=== PATIENT | male | born 1985 | race Hispanic/Latino ===

== ENCOUNTER 2021-10-13 08:53 | Outpatient (CLI) | payer BC | END 2021-10-13 08:54 | disposition home or self-care (01) | LOC: CSHWCC 08:53 | PROVIDERS: ATTEND Nurse Practitioner Family | DX: S81.802D Unspecified open wound, left lower leg, subsequent encounter (principal); R60.0 Localized edema | CPT/HCPCS: 11042; 87070; 87077; 87186; 87205; 99203; G0463 ==

== ENCOUNTER 2021-10-23 14:28 | Outpatient (CLI) | payer BC | END 2021-10-23 14:29 | disposition home or self-care (01) | LOC: CSHWCC 14:28 | PROVIDERS: ATTEND Nurse Practitioner Family | DX: S81.802D Unspecified open wound, left lower leg, subsequent encounter (principal); R60.0 Localized edema | CPT/HCPCS: 29581 ==

== ENCOUNTER 2021-10-27 14:19 | Outpatient (CLI) | payer BC | END 2021-10-27 14:20 | disposition home or self-care (01) | LOC: CSHWCC 14:19 | PROVIDERS: ATTEND Nurse Practitioner Family | DX: S81.802D Unspecified open wound, left lower leg, subsequent encounter (principal); R60.0 Localized edema | CPT/HCPCS: 29581 ==

== ENCOUNTER 2021-10-30 15:47 | Outpatient (CLI) | payer BC | END 2021-10-30 15:48 | disposition home or self-care (01) | LOC: CSHWCC 15:47 | PROVIDERS: ATTEND Nurse Practitioner Family | DX: S81.802D Unspecified open wound, left lower leg, subsequent encounter (principal); R60.0 Localized edema | CPT/HCPCS: 29581 ==

== ENCOUNTER 2021-11-03 15:00 | Outpatient (CLI) | payer BC | END 2021-11-03 15:01 | disposition home or self-care (01) | LOC: CSHWCC 15:00 | PROVIDERS: ATTEND Nurse Practitioner Family | DX: S81.802D Unspecified open wound, left lower leg, subsequent encounter (principal); R60.0 Localized edema | CPT/HCPCS: 29581 ==

== ENCOUNTER 2021-11-10 14:41 | Outpatient (CLI) | payer BC | END 2021-11-10 14:42 | disposition home or self-care (01) | LOC: CSHWCC 14:41 | PROVIDERS: ATTEND Nurse Practitioner Family | DX: S81.802D Unspecified open wound, left lower leg, subsequent encounter (principal); R60.0 Localized edema | CPT/HCPCS: 29581 ==

== ENCOUNTER 2021-11-13 15:10 | Outpatient (CLI) | payer BC | END 2021-11-13 15:11 | disposition home or self-care (01) | LOC: CSHWCC 15:10 | PROVIDERS: ATTEND Nurse Practitioner Family | DX: S81.802D Unspecified open wound, left lower leg, subsequent encounter (principal); R60.0 Localized edema ==

== ENCOUNTER 2021-11-17 15:07 | Outpatient (CLI) | payer BC | END 2021-11-17 15:08 | disposition home or self-care (01) | LOC: CSHWCC 15:07 | PROVIDERS: ATTEND Nurse Practitioner Family | DX: S81.802D Unspecified open wound, left lower leg, subsequent encounter (principal); R60.0 Localized edema | CPT/HCPCS: 29581; 99213; G0463 ==

== ENCOUNTER 2021-11-18 13:35 | Outpatient (CLI) | payer BC | END 2021-11-18 13:36 | disposition home or self-care (01) | LOC: CSHWCC 13:35 | PROVIDERS: ATTEND Nurse Practitioner Family | DX: S81.802D Unspecified open wound, left lower leg, subsequent encounter (principal); R60.0 Localized edema; L08.89 Other specified local infections of the skin and subcutaneous tissue; B96.89 Other specified bacterial agents as the cause of diseases classified elsewhere ==

== ENCOUNTER → 2021-11-21 | Outpatient (CLI) | payer BC | LOC: CSHWCC 08:00 | PROVIDERS: ATTEND Nurse Practitioner Family | DX: S81.802D Unspecified open wound, left lower leg, subsequent encounter (principal); R60.0 Localized edema; L08.89 Other specified local infections of the skin and subcutaneous tissue; B96.89 Other specified bacterial agents as the cause of diseases classified elsewhere ==

== ENCOUNTER 2021-11-24 14:47 | Outpatient (CLI) | payer BC | END 2021-11-24 14:48 | disposition home or self-care (01) | LOC: CSHWCC 14:47 | PROVIDERS: ATTEND Nurse Practitioner Family | DX: S81.802D Unspecified open wound, left lower leg, subsequent encounter (principal); R60.0 Localized edema | CPT/HCPCS: 11042 ==

== ENCOUNTER 2021-12-03 14:48 | Outpatient (CLI) | payer BC | END 2021-12-03 14:49 | disposition home or self-care (01) | LOC: CSHWCC 14:48 | PROVIDERS: ATTEND Nurse Practitioner Family | DX: S81.802D Unspecified open wound, left lower leg, subsequent encounter (principal); R60.0 Localized edema | CPT/HCPCS: 11042; 87070; 87205; 99213; G0463 ==

== ENCOUNTER 2021-12-11 15:10 | Outpatient (CLI) | payer BC | END 2021-12-11 15:11 | disposition home or self-care (01) | LOC: CSHWCC 15:10 | PROVIDERS: ATTEND Nurse Practitioner Family | DX: S81.802D Unspecified open wound, left lower leg, subsequent encounter (principal); R60.0 Localized edema | CPT/HCPCS: 99213; G0463 ==

== ENCOUNTER 2022-02-05 14:54 | Outpatient (CLI) | payer BC | END 2022-02-05 14:55 | disposition home or self-care (01) | LOC: CSHWCC 14:54 | PROVIDERS: ATTEND Nurse Practitioner Family | DX: S81.802D Unspecified open wound, left lower leg, subsequent encounter (principal); R60.0 Localized edema | CPT/HCPCS: 29581; 87070; 87077; 87186; 87205 ==

== ENCOUNTER 2022-02-09 14:09 | Outpatient (CLI) | payer BC | END 2022-02-09 14:10 | disposition home or self-care (01) | LOC: CSHWCC 14:09 | PROVIDERS: ATTEND Nurse Practitioner Family | DX: S81.802D Unspecified open wound, left lower leg, subsequent encounter (principal); R60.0 Localized edema | CPT/HCPCS: 11042; 11045; 99212; G0463 ==

== ENCOUNTER 2022-02-12 10:26 | Outpatient (CLI) | payer BC | END 2022-02-12 10:27 | disposition home or self-care (01) | LOC: CSHWCC 10:26 | PROVIDERS: ATTEND Nurse Practitioner Family | DX: S81.802D Unspecified open wound, left lower leg, subsequent encounter (principal); R60.0 Localized edema ==

== ENCOUNTER 2022-02-19 10:35 | Outpatient (CLI) | payer BC | END 2022-02-19 10:36 | disposition home or self-care (01) | LOC: CSHWCC 10:35 | PROVIDERS: ATTEND Nurse Practitioner Family | DX: S81.801D Unspecified open wound, right lower leg, subsequent encounter (principal); R60.0 Localized edema ==

== ENCOUNTER 2022-02-23 14:43 | Outpatient (CLI) | payer BC | END 2022-02-23 14:44 | disposition home or self-care (01) | LOC: CSHWCC 14:43 | PROVIDERS: ATTEND Nurse Practitioner Family | DX: S81.802D Unspecified open wound, left lower leg, subsequent encounter (principal); R60.0 Localized edema | CPT/HCPCS: 29581 ==

== ENCOUNTER 2022-02-26 13:43 | Outpatient (CLI) | payer BC | END 2022-02-26 13:44 | disposition home or self-care (01) | LOC: CSHWCC 13:43 | PROVIDERS: ATTEND Preventive Medicine Undersea and Hyperbaric Medicine | DX: S81.802D Unspecified open wound, left lower leg, subsequent encounter (principal); R60.0 Localized edema | CPT/HCPCS: 11042 ==

== ENCOUNTER 2022-03-03 11:25 | Outpatient (CLI) | payer BC | END 2022-03-03 11:26 | disposition home or self-care (01) | LOC: CSHWCC 11:25 | PROVIDERS: ATTEND Preventive Medicine Undersea and Hyperbaric Medicine | DX: S81.802D Unspecified open wound, left lower leg, subsequent encounter (principal); R60.0 Localized edema | CPT/HCPCS: 29581 ==

== ENCOUNTER 2022-03-06 10:32 | Outpatient (CLI) | payer BC | END 2022-03-06 10:33 | disposition home or self-care (01) | LOC: CSHWCC 10:32 | PROVIDERS: ATTEND Preventive Medicine Undersea and Hyperbaric Medicine | DX: S81.802D Unspecified open wound, left lower leg, subsequent encounter (principal); R60.0 Localized edema | CPT/HCPCS: 29581 ==

== ENCOUNTER 2022-03-10 08:07 | Outpatient (CLI) | payer BC | END 2022-03-10 08:08 | disposition home or self-care (01) | LOC: CSHWCC 08:07 | PROVIDERS: ATTEND Preventive Medicine Undersea and Hyperbaric Medicine | DX: S81.802D Unspecified open wound, left lower leg, subsequent encounter (principal); R60.0 Localized edema | CPT/HCPCS: 99213; G0463 ==

== ENCOUNTER 2022-03-16 09:36 | Outpatient (CLI) | payer BC | END 2022-03-16 09:37 | disposition home or self-care (01) | LOC: CSHWCC 09:36 | PROVIDERS: ATTEND Nurse Practitioner Family | DX: S81.802D Unspecified open wound, left lower leg, subsequent encounter (principal); R60.0 Localized edema | CPT/HCPCS: 29581 ==

== ENCOUNTER 2022-03-19 14:01 | Outpatient (CLI) | payer BC | END 2022-03-19 14:02 | disposition home or self-care (01) | LOC: CSHWCC 14:01 | PROVIDERS: ATTEND Preventive Medicine Undersea and Hyperbaric Medicine | DX: S81.802D Unspecified open wound, left lower leg, subsequent encounter (principal); R60.0 Localized edema ==

== ENCOUNTER 2022-03-27 08:08 | Outpatient (CLI) | payer BC | END 2022-03-27 08:09 | disposition home or self-care (01) | LOC: CSHWCC 08:08 | PROVIDERS: ATTEND Preventive Medicine Undersea and Hyperbaric Medicine | DX: S81.802D Unspecified open wound, left lower leg, subsequent encounter (principal); R60.0 Localized edema | CPT/HCPCS: 29581 ==

== ENCOUNTER 2022-03-31 09:00 | Outpatient (CLI) | payer BC | END 2022-03-31 09:01 | disposition home or self-care (01) | LOC: CSHWCC 09:00 | PROVIDERS: ATTEND Preventive Medicine Undersea and Hyperbaric Medicine | DX: S81.802D Unspecified open wound, left lower leg, subsequent encounter (principal); R60.0 Localized edema | CPT/HCPCS: 29581; 99213; G0463 ==

== ENCOUNTER 2022-04-03 10:12 | Outpatient (CLI) | payer BC | END 2022-04-03 10:13 | disposition home or self-care (01) | LOC: CSHWCC 10:12 | PROVIDERS: ATTEND Preventive Medicine Undersea and Hyperbaric Medicine | DX: S81.802D Unspecified open wound, left lower leg, subsequent encounter (principal); R60.0 Localized edema | CPT/HCPCS: 29581 ==

== ENCOUNTER 2022-04-15 11:03 | Outpatient (CLI) | payer BC | END 2022-04-15 11:04 | disposition home or self-care (01) | LOC: CSHWCC 11:03 | PROVIDERS: ATTEND Preventive Medicine Undersea and Hyperbaric Medicine | DX: S81.802D Unspecified open wound, left lower leg, subsequent encounter (principal); R60.0 Localized edema ==

== ENCOUNTER 2022-04-22 09:06 | Outpatient (CLI) | payer BC | END 2022-04-22 09:07 | disposition home or self-care (01) | LOC: CSHWCC 09:06 | PROVIDERS: ATTEND Preventive Medicine Undersea and Hyperbaric Medicine | DX: S81.802D Unspecified open wound, left lower leg, subsequent encounter (principal); R60.0 Localized edema ==

== ENCOUNTER 2022-04-30 08:46 | Outpatient (CLI) | payer BC | END 2022-04-30 08:47 | disposition home or self-care (01) | LOC: CSHWCC 08:46 | PROVIDERS: ATTEND Nurse Practitioner Family | DX: S81.802D Unspecified open wound, left lower leg, subsequent encounter (principal); R60.0 Localized edema ==

== ENCOUNTER 2022-05-18 08:03 | Outpatient (CLI) | payer BC | END 2022-05-18 08:04 | disposition home or self-care (01) | LOC: CSHWCC 08:03 | PROVIDERS: ATTEND Nurse Practitioner Family | DX: S81.802D Unspecified open wound, left lower leg, subsequent encounter (principal); R60.0 Localized edema | CPT/HCPCS: 29581; 97607 ==

== ENCOUNTER 2022-06-10 13:26 | Outpatient (CLI) | payer BC ==
[2022-06-10 20:16] VITALS: BP 126/81
== END 2022-06-10 13:27 | disposition home or self-care (01) ==
LOC: CSHWCC 13:26
PROVIDERS: ATTEND Nurse Practitioner Family
DX: S81.802D Unspecified open wound, left lower leg, subsequent encounter (principal); R60.0 Localized edema
CPT/HCPCS: 87070; 87205

== ENCOUNTER 2022-06-25 15:15 | Outpatient (CLI) | payer BC | END 2022-06-25 15:16 | disposition home or self-care (01) | LOC: CSHWCC 15:15 | PROVIDERS: ATTEND Nurse Practitioner Family | DX: S81.802D Unspecified open wound, left lower leg, subsequent encounter (principal); R60.0 Localized edema ==

== ENCOUNTER 2022-07-03 09:13 | Outpatient (CLI) | payer BC | END 2022-07-03 09:14 | disposition home or self-care (01) | LOC: CSHWCC 09:13 | PROVIDERS: ATTEND Nurse Practitioner Family | DX: S81.802D Unspecified open wound, left lower leg, subsequent encounter (principal); R60.0 Localized edema | CPT/HCPCS: 11042; 11045; 29581; 99212; G0463 ==

== ENCOUNTER 2022-07-15 13:35 | Outpatient (CLI) | payer BC | END 2022-07-15 13:36 | disposition home or self-care (01) | LOC: CSHWCC 13:35 | PROVIDERS: ATTEND Nurse Practitioner Family | DX: S81.802D Unspecified open wound, left lower leg, subsequent encounter (principal); R60.0 Localized edema | CPT/HCPCS: 29581 ==

== ENCOUNTER 2022-07-24 09:54 | Outpatient (CLI) | payer BC | END 2022-07-24 09:55 | disposition home or self-care (01) | LOC: CSHWCC 09:54 | PROVIDERS: ATTEND Nurse Practitioner Family | DX: S81.802D Unspecified open wound, left lower leg, subsequent encounter (principal); R60.0 Localized edema | CPT/HCPCS: 11042; 11045 ==

== ENCOUNTER 2022-07-31 09:39 | Outpatient (CLI) | payer BC | END 2022-07-31 09:40 | disposition home or self-care (01) | LOC: CSHWCC 09:39 | PROVIDERS: ATTEND Nurse Practitioner Family | DX: S81.802D Unspecified open wound, left lower leg, subsequent encounter (principal); R60.0 Localized edema | CPT/HCPCS: 29581 ==

== ENCOUNTER 2022-08-14 08:34 | Outpatient (CLI) | payer BC | END 2022-08-14 08:35 | disposition home or self-care (01) | LOC: CSHWCC 08:34 | PROVIDERS: ATTEND Nurse Practitioner Family | DX: S81.802D Unspecified open wound, left lower leg, subsequent encounter (principal); R60.0 Localized edema | CPT/HCPCS: 29581 ==

== ENCOUNTER 2022-08-19 10:20 | Outpatient (CLI) | payer BC | END 2022-08-19 10:21 | disposition home or self-care (01) | LOC: CSHWCC 10:20 | PROVIDERS: ATTEND Nurse Practitioner Family | DX: S81.802D Unspecified open wound, left lower leg, subsequent encounter (principal); R60.0 Localized edema ==

== ENCOUNTER 2022-08-26 13:39 | Outpatient (CLI) | payer BC | END 2022-08-26 13:40 | disposition home or self-care (01) | LOC: CSHWCC 13:39 | PROVIDERS: ATTEND Nurse Practitioner Family | DX: S81.802D Unspecified open wound, left lower leg, subsequent encounter (principal); R60.0 Localized edema | CPT/HCPCS: 11042; 97607 ==

== ENCOUNTER 2022-08-28 10:03 | Outpatient (CLI) | payer BC | END 2022-08-28 10:04 | disposition home or self-care (01) | LOC: CSHWCC 10:03 | PROVIDERS: ATTEND Nurse Practitioner Family | DX: S81.802D Unspecified open wound, left lower leg, subsequent encounter (principal); R60.0 Localized edema ==

== ENCOUNTER 2022-09-01 10:30 | Outpatient (CLI) | payer BC | END 2022-09-01 10:31 | disposition home or self-care (01) | LOC: CSHWCC 10:30 | PROVIDERS: ATTEND Nurse Practitioner Family | DX: S81.802D Unspecified open wound, left lower leg, subsequent encounter (principal); R60.0 Localized edema | CPT/HCPCS: 29581; 97607; 99212; G0463 ==

== ENCOUNTER 2022-09-04 10:18 | Outpatient (CLI) | payer BC | END 2022-09-04 10:19 | disposition home or self-care (01) | LOC: CSHWCC 10:18 | PROVIDERS: ATTEND Nurse Practitioner Family | DX: S81.802D Unspecified open wound, left lower leg, subsequent encounter (principal) | CPT/HCPCS: 29581 ==

== ENCOUNTER 2022-09-08 13:30 | Outpatient (CLI) | payer BC | END 2022-09-08 13:31 | disposition home or self-care (01) | LOC: CSHWCC 13:30 | PROVIDERS: ATTEND Nurse Practitioner Family | DX: S81.802D Unspecified open wound, left lower leg, subsequent encounter (principal) | CPT/HCPCS: 15271; 15272; 29581; 97607; Q4101-KX-JC ==

== ENCOUNTER 2022-09-11 10:49 | Outpatient (CLI) | payer BC | END 2022-09-11 10:50 | disposition home or self-care (01) | LOC: CSHWCC 10:49 | PROVIDERS: ATTEND Nurse Practitioner Family | DX: S81.802D Unspecified open wound, left lower leg, subsequent encounter (principal); R60.0 Localized edema ==

== ENCOUNTER 2022-09-15 11:30 | Outpatient (CLI) | payer BC | END 2022-09-15 11:31 | disposition home or self-care (01) | LOC: CSHWCC 11:30 | PROVIDERS: ATTEND Nurse Practitioner Family | DX: S81.802D Unspecified open wound, left lower leg, subsequent encounter (principal); R60.0 Localized edema | CPT/HCPCS: 11042; 11045; 97607 ==

== ENCOUNTER 2022-09-29 10:26 | Outpatient (CLI) | payer BC | END 2022-09-29 10:27 | disposition home or self-care (01) | LOC: CSHWCC 10:26 | PROVIDERS: ATTEND Nurse Practitioner Family | DX: S81.802D Unspecified open wound, left lower leg, subsequent encounter (principal); R60.0 Localized edema ==

== ENCOUNTER 2022-10-06 14:34 | Outpatient (CLI) | payer BC | END 2022-10-06 14:35 | disposition home or self-care (01) | LOC: CSHWCC 14:34 | PROVIDERS: ATTEND Nurse Practitioner Family | DX: S81.802D Unspecified open wound, left lower leg, subsequent encounter (principal); R60.0 Localized edema | CPT/HCPCS: 15271; 15272; 97607; Q4101-KX-JC ==

== ENCOUNTER 2022-10-08 08:04 | Outpatient (CLI) | payer BC | END 2022-10-08 08:05 | disposition home or self-care (01) | LOC: CSHWCC 08:04 | PROVIDERS: ATTEND Nurse Practitioner Family | DX: S81.802D Unspecified open wound, left lower leg, subsequent encounter (principal); R60.0 Localized edema ==

== ENCOUNTER 2022-10-13 13:56 | Outpatient (CLI) | payer BC | END 2022-10-13 13:57 | disposition home or self-care (01) | LOC: CSHWCC 13:56 | PROVIDERS: ATTEND Nurse Practitioner Family | DX: S81.802D Unspecified open wound, left lower leg, subsequent encounter (principal); R60.0 Localized edema ==

== ENCOUNTER 2022-10-20 08:42 | Outpatient (CLI) | payer BC | END 2022-10-20 08:43 | disposition home or self-care (01) | LOC: CSHWCC 08:42 | PROVIDERS: ATTEND Nurse Practitioner Family | DX: S81.802D Unspecified open wound, left lower leg, subsequent encounter (principal); R60.0 Localized edema | CPT/HCPCS: 87070; 87077; 87186; 87205 ==

== ENCOUNTER 2022-10-23 10:41 | Outpatient (CLI) | payer BC | END 2022-10-23 10:42 | disposition home or self-care (01) | LOC: CSHWCC 10:41 | PROVIDERS: ATTEND Nurse Practitioner Family | DX: S81.802D Unspecified open wound, left lower leg, subsequent encounter (principal); R60.0 Localized edema ==

== ENCOUNTER 2022-10-30 10:50 | Outpatient (CLI) | payer BC | END 2022-10-30 10:51 | disposition home or self-care (01) | LOC: CSHWCC 10:50 | PROVIDERS: ATTEND Nurse Practitioner Family | DX: S81.802D Unspecified open wound, left lower leg, subsequent encounter (principal); R60.0 Localized edema | CPT/HCPCS: 29581 ==

== ENCOUNTER 2022-11-03 08:04 | Outpatient (CLI) | payer BC | END 2022-11-03 08:05 | disposition home or self-care (01) | LOC: CSHWCC 08:04 | PROVIDERS: ATTEND Nurse Practitioner Family | DX: S81.802D Unspecified open wound, left lower leg, subsequent encounter (principal); R60.0 Localized edema ==

== ENCOUNTER 2022-11-05 09:44 | Outpatient (CLI) | payer BC, SELFPAY | END 2022-11-05 09:45 | disposition home or self-care (01) | LOC: CSHWCC 09:44 | PROVIDERS: ATTEND Nurse Practitioner Family | DX: S81.802D Unspecified open wound, left lower leg, subsequent encounter (principal); R60.0 Localized edema ==

== ENCOUNTER 2022-11-12 14:31 | Outpatient (CLI) | payer SELFPAY | END 2022-11-12 14:32 | disposition home or self-care (01) | LOC: CSHWCC 14:31 | PROVIDERS: ATTEND Nurse Practitioner Family | DX: R60.0 Localized edema (principal); S81.802D Unspecified open wound, left lower leg, subsequent encounter | CPT/HCPCS: 11042; 29581 ==

== ENCOUNTER 2022-12-11 10:07 | Outpatient (CLI) | payer SELFPAY | END 2022-12-11 10:08 | disposition home or self-care (01) | LOC: CSHWCC 10:07 | PROVIDERS: ATTEND Nurse Practitioner Family | DX: R60.0 Localized edema (principal); S81.802D Unspecified open wound, left lower leg, subsequent encounter | CPT/HCPCS: 11042; 11045; 29581 ==

== ENCOUNTER 2022-12-29 14:36 | Outpatient (CLI) | payer SELFPAY | END 2022-12-29 14:37 | disposition home or self-care (01) | LOC: CSHWCC 14:36 | PROVIDERS: ATTEND Nurse Practitioner Family | DX: R60.0 Localized edema (principal); S81.802D Unspecified open wound, left lower leg, subsequent encounter | CPT/HCPCS: 97597; 97598 ==

== ENCOUNTER 2023-01-14 14:46 | Outpatient (CLI) | payer SELFPAY | END 2023-01-14 14:47 | disposition home or self-care (01) | LOC: CSHWCC 14:46 | PROVIDERS: ATTEND Nurse Practitioner Family | DX: R60.0 Localized edema (principal); S81.802D Unspecified open wound, left lower leg, subsequent encounter | CPT/HCPCS: 97597; 97598 ==

== ENCOUNTER 2023-02-02 09:29 | Outpatient (CLI) | payer SELFPAY | END 2023-02-02 09:30 | disposition home or self-care (01) | LOC: CSHWCC 09:29 | PROVIDERS: ATTEND Nurse Practitioner Family | DX: R60.0 Localized edema (principal); S81.802D Unspecified open wound, left lower leg, subsequent encounter | CPT/HCPCS: 11042; 87070; 87077; 87186; 87205 ==